=== PATIENT | female | born 1940 | race Caucasian/White ===

== ENCOUNTER 2020-08-16 13:18 | Emergency (ER) | payer MEDICARE ==
[~2020-08-16] VITALS: Ht 162.6 cm; Wt 61.0 kg
--- NOTE | 2020-08-16 13:37 | NUR ---
BIB [facility] FROM HOME. PT C/O CHRONIC, INTERMITTENT DIZZYNESS WITH NEAR SYNCOPY. 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 PT STATES SHE'S HAD DIZZYNESS FOR YEARS. PT CONNECTED TO MONITORING. CALL LIGHT IN REACH. WARM BLANKET PROVIDED.
[2020-08-16] MEDS ORDERED: SODIUM CHLORIDE FLUSH 10ML SYR IVF ONE (14:00)
--- NOTE | 2020-08-16 14:27 | NUR ---
LAB AT BEDSIDE.
[2020-08-16 14:32] LABS: BASOPHILS % (AUTO) 0 % (0-1); EOSINOPHILS % (AUTO) 1 % (1-7); LYMPHOCYTES % (AUTO) 21 % (22-44); MEAN CORPUSCULAR HEMOGLOBIN 27.1 pg (27.0-34.8); MEAN CORPUSCULAR HGB CONC 32.8 g/dL (32.4-35.8); MEAN PLATELET VOLUME 8.9 fL (7.4-10.4); MONOCYTES % (AUTO) 8 % (2-9); NEUTROPHILS % (AUTO) 70 % (42-75); PLATELET COUNT 125 x10^3/uL (130-400); RED BLOOD COUNT 3.69 x10^6/uL (3.82-5.3); RED CELL DISTRIBUTION WIDTH 16.9 % (9.6-15.2)
[2020-08-16 14:33] LABS: MD NO
[2020-08-16 14:43] LABS: ANION GAP 6 mmol/L (5-15); CALCIUM 8.5 mg/dL (8.5-10.1); CHLORIDE 107 mmol/L (98-107)
[2020-08-16 14:48] LABS: CREATININE 1.03 mg/dL (0.55-1.02); TROPONIN I < 0.015 ng/mL (0.000-0.045)
--- NOTE | 2020-08-16 15:11 | NUR ---
ALL RESULTS ARE BACK AT THIS TIME. CHART UP FOR RECHECK.
[2020-08-16 15:52] VITALS: BP 148/66
--- NOTE | 2020-08-16 15:57 | NUR ---
[facility] ARRIVED AT BEDSIDE.
== END 2020-08-16 16:25 | disposition home or self-care (01) ==
LOC: ED 15:17
DX: E11.65 Type 2 diabetes mellitus with hyperglycemia (principal); R42 Dizziness and giddiness; I44.7 Left bundle-branch block, unspecified
CPT/HCPCS: 36415; 80048; 82040; 84484; 85025; 93005; 99284